=== PATIENT | male | born 1995 | race African-American/Black ===

== ENCOUNTER 2017-09-05 06:30 | Emergency (ER) | payer OTHER ==
[~2017-09-05] VITALS: Ht 193 cm; Wt 90.7 kg
[2017-09-05 06:55] LABS: ABSOLUTE NEUTROPHILS 7.1 thou/uL (1.4-8.2); BASOPHILS 0.7 % (0.0-2.0); EOSINOPHILS 3.4 % (0.0-3.0); HEMATOCRIT 48.4 % (42.0-52.0); HEMOGLOBIN 16.2 gm/dL (14.0-18.0); LYMPHOCYTES 13.7 % (24.0-44.0); MCH 30.9 pg (26.0-34.0); MCHC 33.5 g/dL (28.0-37.0); MCV 92.3 fL (80.0-100.0); MONOCYTES 6.2 % (1.0-8.0); PLATELET COUNT 176 thou/uL (150-400); RBC 5.25 mil/uL (4.50-6.00); WBC 9.4 thou/uL (4.0-11.0)
[2017-09-05] MEDS ORDERED: NOHOMEMEDICATIONS (06:56)
[2017-09-05 07:05] LABS: CALCIUM 8.8 mg/dL (8.5-10.1); CREATININE 1.1 mg/dL (0.7-1.3); POTASSIUM 4.1 mmol/L (3.5-5.1)
[2017-09-05 07:11] LABS: ALBUMIN 4.2 g/dL (3.4-5.0); TOTAL BILIRUBIN 0.3 mg/dL (<0.1-1.0); TOTAL PROTEIN 7.4 g/dL (6.4-8.2)
[2017-09-05] MEDS ORDERED: PEPCID20 MG PO (07:18)
[2017-09-05 07:39] VITALS: BP 130/73
== END 2017-09-05 08:39 | disposition home or self-care (01) ==
LOC: ER 06:30
PROVIDERS: Emergency Medicine
DX: R10.13 Epigastric pain (principal); F17.210 Nicotine dependence, cigarettes, uncomplicated

== ENCOUNTER 2017-09-19 14:48 | Emergency (ER) | payer OTHER ==
[~2017-09-19] VITALS: Ht 193 cm; Wt 90.7 kg
[~2017-09-19 14:48] MED LIST: NOHOMEMEDICATIONS; PEPCID20 MG PO
[2017-09-19 15:27] LABS: ABSOLUTE NEUTROPHILS 3.8 thou/uL (1.4-8.2); BASOPHILS 0.8 % (0.0-2.0); EOSINOPHILS 5.9 % (0.0-3.0); HEMATOCRIT 45.9 % (42.0-52.0); HEMOGLOBIN 15.7 gm/dL (14.0-18.0); LYMPHOCYTES 27.1 % (24.0-44.0); MCH 30.7 pg (26.0-34.0); MCHC 34.2 g/dL (28.0-37.0); MCV 89.7 fL (80.0-100.0); MONOCYTES 8.1 % (1.0-8.0); PLATELET COUNT 180 thou/uL (150-400); POLYS 58.1 % (36.0-66.0); RBC 5.11 mil/uL (4.50-6.00); RDW 13.4 % (10.5-14.5); WBC 6.5 thou/uL (4.0-11.0)
[2017-09-19 15:33] LABS: CALCIUM 8.6 mg/dL (8.5-10.1); CREATININE 0.9 mg/dL (0.7-1.3); POTASSIUM 4.2 mmol/L (3.5-5.1)
[2017-09-19 15:40] LABS: ALBUMIN 3.9 g/dL (3.4-5.0); TOTAL BILIRUBIN 0.5 mg/dL (<0.1-1.0); TOTAL PROTEIN 6.9 g/dL (6.4-8.2)
[2017-09-19 15:41] LABS: URINE BILIRUBIN NEGATIVE (Negative); URINE BLOOD NEGATIVE (Negative); URINE CLARITY CLEAR; URINE COLOR YELLOW; URINE GLUCOSE-RANDOM* NEGATIVE (Negative); URINE KETONES NEGATIVE (Negative); URINE LEUKOCYTES-REFLEX NEGATIVE (Negative); URINE NITRITE-REFLEX NEGATIVE (Negative); URINE PROTEIN (DIPSTICK) NEGATIVE (Negative); URINE SPECIFIC GRAVITY <= 1.005 (1.005-1.035); URINE UROBILINOGEN 0.2 E.U./dl (0.2-1.0)
[2017-09-19] MEDS ORDERED: PEPCID20 MG PO (17:22)
[2017-09-19] MEDS ORDERED: TRAMADOL 50 MG50 MG PO (17:22)
[2017-09-19 17:28] VITALS: BP 113/72
== END 2017-09-19 17:41 | disposition home or self-care (01) ==
LOC: ER 14:48
PROVIDERS: Emergency Medicine
DX: K29.20 Alcoholic gastritis without bleeding (principal); B37.49 Other urogenital candidiasis; F10.10 Alcohol abuse, uncomplicated; F17.210 Nicotine dependence, cigarettes, uncomplicated; Z88.5 Allergy status to narcotic agent